=== PATIENT | male | born 1975 | race Caucasian/White ===

== ENCOUNTER 2020-08-01 14:53 | Emergency (ER) | payer SELFPAY ==
[~2020-08-01] VITALS: Ht 172 cm; Wt 96.1 kg
[2020-08-01 15:33] LABS: BASOPHILS % (AUTO) 0 % (0-10); EOSINOPHILS # (AUTO) 0.2 10^3/uL (0.0-0.3); EOSINOPHILS % (AUTO) 1 % (0-10); HEMATOCRIT 40 % (40-54); HEMOGLOBIN 14.9 g/dL (13.3-17.7); LYMPHOCYTES # (AUTO) 0.7 X 10^3 (1.0-4.0); LYMPHOCYTES % (AUTO) 2 % (12-44); MEAN CORPUSCULAR HEMOGLOBIN 32 pg (25-34); MEAN CORPUSCULAR HGB CONC 37 g/dL (32-36); MEAN CORPUSCULAR VOLUME 87 fL (80-99); MEAN PLATELET VOLUME 11.4 fL (9.0-12.2); MONOCYTES # (AUTO) 1.9 X 10^3 (0.0-1.0); MONOCYTES % (AUTO) 5 % (0-12); NEUTROPHILS % (AUTO) 91 % (42-75); PLATELET COUNT 275 10^3/uL (130-400)
[2020-08-01 15:36] LABS: WHITE BLOOD COUNT 36.2 10^3/uL (4.3-11.0)
[2020-08-01 15:39] LABS: ALBUMIN 2.2 GM/DL (3.2-4.5); CHLORIDE 90 MMOL/L (98-107); INR 1.9 (0.8-1.4); POTASSIUM 3.6 MMOL/L (3.6-5.0); PROTHROMBIN TIME PATIENT 22.2 SEC (12.2-14.7)
[2020-08-01 15:40] LABS: CALCIUM 7.8 MG/DL (8.5-10.1)
[2020-08-01 15:42] LABS: GLUCOSE 160 MG/DL (70-105); TOTAL PROTEIN 6.8 GM/DL (6.4-8.2)
[2020-08-01 15:43] LABS: CARBON DIOXIDE 20 MMOL/L (21-32)
[2020-08-01 15:44] LABS: CLARITY,URINE CLEAR; COLOR,URINE AMBER; GLUCOSE, URINE (UA) 2+ (NEGATIVE); KETONES,URINE 1+ (NEGATIVE); LEUKOCYTE ESTERASE ,URINE TRACE (NEGATIVE); NITRITE,URINE POSITIVE (NEGATIVE); PH,URINE 6.5 (5-9); PROTEIN,URINE 2+ (NEGATIVE)
[2020-08-01 15:45] LABS: ALKALINE PHOSPHATASE 358 U/L (40-136); CREATININE SERUM 1.68 MG/DL (0.60-1.30); GFR ESTIMATED 45
[2020-08-01 15:46] LABS: BUN/CREATININE RATIO 31
[2020-08-01 15:48] LABS: ALANINE AMINOTRANSFERASE 28 U/L (0-55)
[2020-08-01 15:57] LABS: ANISOCYTOSIS SLIGHT; BAND NEUTROPHILS 3 %; BASOPHILS % (MANUAL) 0 %; EOSINOPHILS % (MANUAL) 0 %; HYPOCHROMASIA MODERATE; LYMPHOCYTES % (MANUAL) 3 %; MONOCYTES % (MANUAL) 1 %; NEUTROPHILS % (MANUAL) 93 %; POIKILOCYTOSIS SLIGHT
--- NOTE | 2020-08-01 15:57 | Diagnostic Imaging Report ---
Clinical indication: Patient with weakness and abdominal pain. Exam: Portable chest x-ray upright view. Comparisons: None. Findings: Low lung volume is seen. There is curvilinear discoid-like atelectasis involving the right lung base. There is curvilinear opacities in the medial left lung base region which may represent atelectasis. There is elevation of the right hemidiaphragm. There is no pleural effusion or pneumothorax. Pulmonary vasculature and cardiac silhouette are within normal limits for portable projection of low lung volumes. Bones show no significant abnormality. Impression: 1: There is bibasilar atelectasis and elevation of the right hemidiaphragm. 2: The remainder of this exam shows no other definite abnormality. Dictated by: Dictated on workstation # [id number]
[2020-08-01 15:58] LABS: TARGET CELLS MODERATE
[2020-08-01 16:03] LABS: BACTERIA,URINE TRACE /HPF; BILIRUBIN,URINE 3+ (NEGATIVE); SQUAMOUS EPITHELIAL CELL,UR 0-2 /HPF
[2020-08-01 16:04] LABS: BILIRUBIN,TOTAL 27.3 MG/DL (0.1-1.0)
[2020-08-01 16:06] LABS: SODIUM 124 MMOL/L (135-145)
[2020-08-01 16:08] LABS: ACETAMINOPHEN < 10 UG/ML (10-30)
--- NOTE | 2020-08-01 16:13 | ED GI ---
General Chief Complaint: Abdominal/GI Problems Stated Complaint: POSSIBLE LIVER FAILURE Nursing Triage Note: PT PRESENTS TO ED WITH COMPLAINTS OF CARTER, N/V, BILATERAL FEET SWELLING, LETHARGY, CONFUSION, DARK URINE STARTING LAST WEEK. Sepsis Screen: No Definite Risk Source of Information: Patient Exam Limitations: No Limitations (LORETTA ETIENNE APRN) History of Present Illness Date Seen by Provider: August 01, 2020 Time Seen by Provider: 15:10 Initial Comments To ER with reports of yellowish discoloration headache nausea vomiting bilateral feet swelling lethargy and confusion. This started last week. He drinks about a 12 pack of beer a day, alternatively on the days that he does not drink beer he drinks quite a bit of tequila. Timing/Duration: 1 Week Severity/Quality: Cramping Location: Generalized Abdomen Radiation: No Radiation Activities at Onset: None (LORETTA ETIENNE APRN) Allergies and Home Medications Allergies Coded Allergies: No Known Drug Allergies (Unverified , 08/01/20) Home Medications No Active Prescriptions or Reported Meds Patient Home Medication List Home Medication List Reviewed: Yes (LORETTA ETIENNE APRN) Review of Systems Review of Systems Constitutional: see HPI; No chills, No fever; malaise, weakness EENTM: No Symptoms Reported Respiratory: No Symptoms Reported Cardiovascular: No Symptoms Reported Gastrointestinal: See HPI, Abdominal Pain Genitourinary: No Symptoms Reported Musculoskeletal: no symptoms reported Skin: see HPI Psychiatric/Neurological: No Symptoms Reported Endocrine: No Symptoms Reported (LORETTA ETIENNE APRN) Past Zcqzctx-Fhbfzi-Yidloh Hx Patient Social History Alcohol Use: Regular Use Alcohol Beverage of Choice: Beer, Vodka Smoking Status: Never a Smoker Recent Infectious Disease Expo: No Recent Hopitalizations: No (LORETTA ETIENNE APRN) Seasonal Allergies Seasonal Allergies: No (LORETTA ETIENNE APRN) Past Medical History Surgeries: No Respiratory: No Cardiac: No Neurological: No Genitourinary: No Gastrointestinal: No Musculoskeletal: No Endocrine: No HEENT: No Cancer: No Psychosocial: No Integumentary: No Blood Disorders: No (LORETTA ETIENNE APRN) Physical Exam Vital Signs Vital Signs - First Documented 08/01/20 08/01/20 15:11 17:08 Temp 35.9 Pulse 104 Resp 18 B/P (MAP) 126/78 (94) Pulse Ox 98 O2 Delivery Nasal Cannula O2 Flow Rate 2.00 (DANNI COOK MD) Vital Signs Capillary Refill : Less Than 3 Seconds (LORETTA ETIENNE APRN) Height/Weight/BMI Height: '" Weight: lbs. oz. kg; 32.00 BMI Method: General Appearance: WD/WN, no apparent distress HEENT: PERRL/EOMI, scleral icterus (R), scleral icterus (L), other (Telangiectasias of the nose) Neck: non-tender, full range of motion Respiratory: no respiratory distress, no accessory muscle use Cardiovascular: regular rate, rhythm, no murmur Gastrointestinal: normal bowel sounds, non tender, soft Extremities: normal range of motion, non-tender, pedal edema Neurologic/Psychiatric: alert, normal mood/affect, oriented x 3 Skin: warm/dry, jaundice (LORETTA ETIENNE APRN) Progress/Results/Core Measures Results/Orders Lab Results Laboratory Tests Test 08/01/20 15:22 08/01/20 15:34 Range/Units White Blood Count 36.2 *H 4.3-11.0 10^3/uL Red Blood Count 4.61 4.30-5.52 10^6/uL Hemoglobin 14.9 13.3-17.7 g/dL Hematocrit 40 40-54 % Mean Corpuscular Volume 87 80-99 fL Mean Corpuscular Hemoglobin 32 25-34 pg Mean Corpuscular Hemoglobin Concent 37 H 32-36 g/dL Red Cell Distribution Width 16.7 H 10.0-14.5 % Platelet Count 275 130-400 10^3/uL Mean Platelet Volume 11.4 9.0-12.2 fL Immature Granulocyte % (Auto) 1 % Neutrophils (%) (Auto) 91 H 42-75 % Lymphocytes (%) (Auto) 2 L 12-44 % Monocytes (%) (Auto) 5 0-12 % Eosinophils (%) (Auto) 1 0-10 % Basophils (%) (Auto) 0 0-10 % Neutrophils # (Auto) 33.0 H 1.8-7.8 X 10^3 Lymphocytes # (Auto) 0.7 L 1.0-4.0 X 10^3 Monocytes # (Auto) 1.9 H 0.0-1.0 X 10^3 Eosinophils # (Auto) 0.2 0.0-0.3 10^3/uL Basophils # (Auto) 0.0 0.0-0.1 10^3/uL Immature Granulocyte # (Auto) 0.3 H 0.0-0.1 10^3/uL Neutrophils % (Manual) 93 % Lymphocytes % (Manual) 3 % Monocytes % (Manual) 1 % Eosinophils % (Manual) 0 % Basophils % (Manual) 0 % Band Neutrophils 3 % Hypochromasia MODERATE Poikilocytosis SLIGHT Anisocytosis SLIGHT Macrocytosis SLIGHT Target Cells MODERATE Prothrombin Time 22.2 H 12.2-14.7 SEC INR Comment 1.9 H 0.8-1.4 Sodium Level 124 *L 135-145 MMOL/L Potassium Level 3.6 3.6-5.0 MMOL/L Chloride Level 90 L 98-107 MMOL/L Carbon Dioxide Level 20 L 21-32 MMOL/L Anion Gap 14 5-14 MMOL/L Blood Urea Nitrogen 52 H 7-18 MG/DL Creatinine 1.68 H 0.60-1.30 MG/DL Estimat Glomerular Filtration Rate 45 BUN/Creatinine Ratio 31 Glucose Level 160 H 70-105 MG/DL Calcium Level 7.8 L 8.5-10.1 MG/DL Corrected Calcium 9.2 8.5-10.1 MG/DL Total Bilirubin 27.3 *H 0.1-1.0 MG/DL Aspartate Amino Transf (AST/SGOT) 77 H 5-34 U/L Alanine Aminotransferase (ALT/SGPT) 28 0-55 U/L Alkaline Phosphatase 358 H 40-136 U/L Ammonia 75 H 11-32 UMOL/L Total Protein 6.8 6.4-8.2 GM/DL Albumin 2.2 L 3.2-4.5 GM/DL Acetaminophen Level < 10 L 10-30 UG/ML Serum Alcohol < 10 <10 MG/DL Hepatitis A IgM Antibody Non-Reactive Non-Reactive Hepatitis B Surface Antigen Non-Reactive Non-Reactive Hepatitis B Core IgM Antibody Non-Reactive Non-Reactive Hepatitis C Antibody Non-Reactive Non-Reactive Urine Color LIANA H Urine Clarity CLEAR Urine pH 6.5 5-9 Urine Specific [place] 1.025 H 1.016-1.022 Urine Protein 2+ H NEGATIVE Urine Glucose (UA) 2+ H NEGATIVE Urine Ketones 1+ H NEGATIVE Urine Nitrite POSITIVE H NEGATIVE Urine Bilirubin 3+ H NEGATIVE Urine Urobilinogen 2.0 < = 1.0 MG/DL Urine Leukocyte Esterase TRACE H NEGATIVE Urine RBC (Auto) TRACE-L NEGATIVE Urine RBC NONE /HPF Urine WBC NONE /HPF Urine Squamous Epithelial Cells 0-2 /HPF Urine Crystals NONE /LPF Urine Bacteria TRACE /HPF Urine Casts PRESENT /LPF Urine Granular Casts 2-5 H /LPF Urine Mucus NEGATIVE /LPF Urine Other /HPF Urine Culture Indicated NO (DANNI COOK MD) Medications Given in ED Current Medications Medications Dose Ordered Sig/Kendra Route Start Time Stop Time Status Last Admin Dose Admin Ketorolac Tromethamine 15 mg ONCE ONCE IVP 08/01/20 19:45 08/01/20 19:47 DC 08/01/20 19:49 15 MG (DANNI COOK MD) Vital Signs/I&O 08/01/20 08/01/20 08/01/20 15:11 17:08 20:48 Temp 35.9 36.7 Pulse 104 97 Resp 18 20 B/P (MAP) 126/78 (94) 116/71 Pulse Ox 98 93 95 O2 Delivery Nasal Cannula Room Air O2 Flow Rate 2.00 08/02/20 00:00 Intake Total 1000 ml Balance 1000 ml (DANNI COOK MD) Blood Pressure Mean: 94 Progress Progress Note : Progress Note I was personally present in the emergency department during the care of this patient but did not directly participate in this patient's care. (DANNI COOK MD) Departure Communication (Admissions) Family Conversation Labs give this patient a meld score of 35 with a resultant 3-month mortality risk of 52% 1659-[facility] has accepted the patient. Awaiting bed assignment. 1946-he has about headache I will order Toradol and a CT of the head. Awaiting family to arrive to transport. NAME: WAYLON KOCH MED REC#: [id number] PT STATUS: REG ER : 1975 PHYSICIAN: LORETTA ETIENNE APRN ADMIT DATE: 08/01/20/ER Draft Date of Exam:08/01/20 CHEST 1 VIEW, AP/PA ONLY Clinical indication: Patient with weakness and abdominal pain. Exam: Portable chest x-ray upright view. Comparisons: None. Findings: Low lung volume is seen. There is curvilinear discoid-like atelectasis involving the right lung base. There is curvilinear opacities in the medial left lung base region which may represent atelectasis. There is elevation of the right hemidiaphragm. There is no pleural effusion or pneumothorax. Pulmonary vasculature and cardiac silhouette are within normal limits for portable projection of low lung volumes. Bones show no significant abnormality. Impression: 1: There is bibasilar atelectasis and elevation of the right hemidiaphragm. 2: The remainder of this exam shows no other definite abnormality. Dictated on workstation # [id number] Dict: 08/01/20 1551 Trans: 08/01/20 1557 [facility] [id number] Interpreted by: AMELIA SMITH MD Electronically signed by: (LORETTA ETIENNE APRN) Impression Primary Impression: Hepatic failure due to alcoholism Disposition: 02 XFER SHT-TRM HOSP Condition: Critical Transfer Transfer Reason: Exceeds level of care Time Spoke to Accepting Phy: 17:00 (LORETTA ETIENNE APRN) Departure-Patient Inst. Referrals: NO,LOCAL PHYSICIAN (PCP/Family) Primary Care Physician Scripts No Active Prescriptions or Reported Meds LORETTA ETIENNE APRN August 01, 2020 16:12 DANNI COOK MD August 02, 2020 06:29
[2020-08-01 16:14] LABS: AMMONIA 75 UMOL/L (11-32)
[2020-08-01] MEDS ORDERED: ONDANSETRON 4 MG/2 ML (SDV) Z0FRAN IVP ONE (17:00)
[2020-08-01] MEDS ORDERED: NS IV 1000 ML 1,000 ML IV SCH (17:00)
[2020-08-01] MEDS ORDERED: LACTULOSE SYRUP 10GM/15ML (ENULOSE) 30ML UDC PO ONE (17:00)
[2020-08-01] MEDS ORDERED: KETOROLAC 30 MG/ML VIAL IVP ONE (19:45)
--- NOTE | 2020-08-01 20:32 | Diagnostic Imaging Report ---
PROCEDURE: CT head without contrast. TECHNIQUE: Multiple contiguous axial images were obtained through the brain without the use of intravenous contrast. Auto Exposure Controls were utilized during the CT exam to meet ALARA standards for radiation dose reduction. INDICATION: Headache. COMPARISON: None available. FINDINGS: No intracranial hemorrhage. No intracranial mass, mass effect, midline shift, herniation, hydrocephalus or extra-axial fluid collection. No CT evidence of an acute ischemic infarction. The orbits are unremarkable. Periapical lucencies are partially visualized associated with the left maxilla. The paranasal sinuses are clear. The calvarium is intact. IMPRESSION: 1. No acute intracranial abnormality. 2. Partially visualized periapical lucencies associated with the left maxilla. Dictated by: Dictated on workstation # [id number]
[2020-08-01 20:48] VITALS: BP 116/71
[2020-08-01 21:57] LABS: HEPATITIS C ANTIBODY C Non-Reactive (Non-Reactive)
== END 2020-08-01 20:48 | disposition short-term general hospital (02) ==
LOC: ER 14:55 → EDBD 14:55 → ER 20:48
DX: K70.40 Alcoholic hepatic failure without coma (principal); F10.20 Alcohol dependence, uncomplicated; I78.1 Nevus, non-neoplastic
CPT/HCPCS: 70450; 71045; 80053; 80074; 81000; 82140; 85007; 85027; 85610; 93005; 96361; 96374; 96375; 99284; G0480 ×2; 36415; 80320; 80329